=== PATIENT | male | born 1940 | race African-American/Black ===

== ENCOUNTER 2020-11-11 12:17 | Inpatient (IN) | payer OTHER ==
[~2020-11-11] VITALS: Ht 170.2 cm; Wt 91.7 kg
[2020-11-11] MEDS ORDERED: DOPamine 1600MCG/ML D5W 250 ML IV ONE ×3 (12:54→21:30)
[2020-11-11 16:49] LABS: Urine Bacteria NONE SEEN /hpf (None Seen); Urine Blood TRACE /uL (Negative); Urine Hyaline Cast FEW /lpf (0 - 2); Urine WBC 1 /hpf (0 - 3)
[2020-11-11 17:11] LABS: Basophils # (auto) 0.1 10 ^3/uL (0-0.2); Basophils % (auto) 0.3 % (0.0-2.0); Eosinophils # (auto) 0 10 ^3/uL (0-0.8); Hematocrit 33.2 % (41.0-53.0); Hemoglobin 11.1 g/dL (13.5-17.5); Lymphocytes # (auto) 0.6 10 ^3/uL (0.4-5.4); Lymphocytes % (auto) 3.2 % (10.0-50.0); Mean Corpuscular Hemoglobin 32.1 pg (28.0-32.0); Mean Corpuscular Hgb Conc. 33.4 g/dL (32.0-36.0); Mean Corpuscular Volume 95.9 fL (80.0-100.0); Monocytes # (auto) 0.8 10 ^3/uL (0-1.3); Monocytes % (auto) 4.3 % (0.0-12.0); Neutrophils % (auto) 92.2 % (37.0-80.0); Red Blood Cells 3.46 10^6/uL (4.5-5.90); Red Cell Distribution Width 17.9 % (11.8-14.3); White Blood Cell 18.4 10^3/uL (4.4-10.8)
[2020-11-11 17:29] LABS: Chloride 107 mmol/L (98-107); Sodium 142 mmol/L (136-145)
[2020-11-11] MEDS ORDERED: hydrALAZINE HCL 20 MG/ML VL IV ONE (17:30)
[2020-11-11 17:33] LABS: Alanine Aminotransferase 28 U/L (16-61); Albumin 2.8 g/dL (3.4-5.0); Anion Gap 9 (5-15); Aspartate Aminotransferase 36 U/L (15-37); BUN/Creatinine Ratio 6.2; Blood Alcohol < 3.0 mg/dL (0-5); Blood Urea Nitrogen 52 mg/dL (7-18); Calcium 7.2 mg/dL (8.5-10.1); Carbon Dioxide 26 mmol/L (21-32); GFR African American 8 mL/min; GFR Non-African American 7 mL/min
[2020-11-11 17:36] LABS: INR 1.07 (0.9-1.15); Partial Thromboplastin Time 29.2 sec (23.0-31.2)
[2020-11-11 17:38] LABS: Alkaline Phosphatase 135 U/L (45-117); Bilirubin, Total 0.5 mg/dL (0.2-1.0); Total Protein 8.2 g/dL (6.4-8.2)
[2020-11-11 17:48] LABS: Glucose 44 mg/dL (74-106)
[2020-11-11] MEDS ORDERED: hydrALAZINE HCL 20 MG/ML VL IV PRN (19:00)
[2020-11-11] MEDS ORDERED: DOCUSATE CALCIUM 240 MG CAP PO PRN (19:00)
[2020-11-11] MEDS ORDERED: ONDANSETRON HCL 4 MG/2 ML VIAL IV PRN (19:00)
[2020-11-11] MEDS ORDERED: NITROGLYCERIN 0.4 MG SL TAB SL PRN (19:00)
[2020-11-11] MEDS ORDERED: MORPHINE SULFATE INJECTION 2 MG/ML SYRG IV PRN ×2 (19:00)
[2020-11-11] MEDS ORDERED: ACETAMINOPHEN 500 MG TAB PO PRN (19:00)
[2020-11-11] MEDS: SODIUM CHLORIDE 0.9% 1,000 ML IV SCH (19:38)
[2020-11-11] MEDS ORDERED: ACCU-CHEK COMFORT CURVE STRIP VI ONE (22:00)
[2020-11-11] MEDS ORDERED: DEXTROSE (50%) 50ML SYRG IV ONE (22:00)
[2020-11-11] MEDS: InsuLIN REG 1unit/0.01ml Soln (100units/ml) SC SCH (22:00)
[2020-11-12] MEDS ORDERED: hydrALAZINE HCL 20 MG/ML VL ONE (02:24)
[2020-11-12] MEDS: InsuLIN REG 1unit/0.01ml Soln (100units/ml) SC SCH ×4 (06:41→22:00)
[2020-11-12] MEDS ORDERED: DOPamine 1600MCG/ML D5W 250 ML IV ONE (06:44)
[2020-11-12] MEDS ORDERED: cefTRIAXone 1GM/50ML D5W 50 ML IV ONE (07:49)
[2020-11-12 07:50] LABS: Basophils # (auto) 0.1 10 ^3/uL (0-0.2); Basophils % (auto) 0.4 % (0.0-2.0); Eosinophils # (auto) 0 10 ^3/uL (0-0.8); Hematocrit 33.4 % (41.0-53.0); Lymphocytes # (auto) 0.5 10 ^3/uL (0.4-5.4); Lymphocytes % (auto) 3.2 % (10.0-50.0); Mean Corpuscular Hgb Conc. 32.9 g/dL (32.0-36.0); Mean Corpuscular Volume 97.2 fL (80.0-100.0); Monocytes # (auto) 0.7 10 ^3/uL (0-1.3); Monocytes % (auto) 4.5 % (0.0-12.0); Neutrophils # (auto) 13.8 10 ^3/uL (1.6-8.6); Neutrophils % (auto) 91.9 % (37.0-80.0); Nucleated Red Blood Cells % 0.1 %; Red Blood Cells 3.43 10^6/uL (4.5-5.90); Red Cell Distribution Width 18.6 % (11.8-14.3)
[2020-11-12] MEDS: cefTRIAXone 1GM/50ML D5W 50 ML IV SCH (08:00)
[2020-11-12] MEDS: SODIUM CHLORIDE 0.9% 1,000 ML IV SCH ×2 (08:00→17:46)
[2020-11-12 08:10] LABS: Albumin 2.4 g/dL (3.4-5.0); Calcium 6.4 mg/dL (8.5-10.1); Magnesium 1.4 mg/dL (1.6-2.6)
[2020-11-12 08:14] LABS: BUN/Creatinine Ratio 6.5; Bilirubin, Total 0.5 mg/dL (0.2-1.0); Total Protein 7.5 g/dL (6.4-8.2)
[2020-11-12 08:40] LABS: Potassium 6.5 mmol/L (3.5-5.1)
[2020-11-12] MEDS: PANTOPRAZOLE 40 MG TAB PO SCH (09:38)
[2020-11-12] MEDS ORDERED: PANTOPRAZOLE 40 MG/10 ML VIAL INJ IV SCH (10:00)
[2020-11-12] MEDS: ENOXAPARIN SOD 30 MG/0.3 ML SYRINGE SC SCH (10:00)
[2020-11-12] MEDS ORDERED: ENOXAPARIN SOD 30 MG/0.3 ML SYRINGE ONE (10:34)
[2020-11-12] MEDS ORDERED: SODIUM ZIRCONIUM CYCL 10 GM PAK PO ONE (10:45)
[2020-11-12] MEDS ORDERED: LACTULOSE 20Gm/30ML SOLN PO ONE (10:45)
[2020-11-12] MEDS ORDERED: GENTAMICIN SULF 0.3% OPTH(EYE) OINT 3.5GM EACHEYE ONE (10:45)
[2020-11-12] MEDS: MUPIROCIN 2% OINT 15gm or 22gm TOP SCH (12:26)
[2020-11-13 00:45] VITALS: BP 150/68
[2020-11-13 05:00] VITALS: BP 150/68
[2020-11-13 06:04] LABS: Basophils # (auto) 0.1 10 ^3/uL (0-0.2); Eosinophils # (auto) 0 10 ^3/uL (0-0.8); Eosinophils % (auto) 0.2 % (0.0-7.0); Hemoglobin 10.2 g/dL (13.5-17.5); Lymphocytes # (auto) 0.9 10 ^3/uL (0.4-5.4); Lymphocytes % (auto) 7.9 % (10.0-50.0); Mean Corpuscular Hemoglobin 32.3 pg (28.0-32.0); Mean Corpuscular Hgb Conc. 32.9 g/dL (32.0-36.0); Mean Corpuscular Volume 98.3 fL (80.0-100.0); Monocytes # (auto) 0.7 10 ^3/uL (0-1.3); Monocytes % (auto) 6.3 % (0.0-12.0); Neutrophils # (auto) 9.1 10 ^3/uL (1.6-8.6); Neutrophils % (auto) 84.6 % (37.0-80.0); Red Blood Cells 3.15 10^6/uL (4.5-5.90); White Blood Cell 10.8 10^3/uL (4.4-10.8)
[2020-11-13] MEDS: InsuLIN REG 1unit/0.01ml Soln (100units/ml) SC SCH ×4 (06:07→21:06)
[2020-11-13 06:18] LABS: Albumin 2.4 g/dL (3.4-5.0); Calcium 6.2 mg/dL (8.5-10.1); Potassium 5.2 mmol/L (3.5-5.1)
[2020-11-13 06:22] LABS: BUN/Creatinine Ratio 6.9; Bilirubin, Total 0.4 mg/dL (0.2-1.0); Total Protein 7.3 g/dL (6.4-8.2)
[2020-11-13] MEDS ORDERED: VANCOMYCIN 1GM/250ML 250 ML IV ONE (07:00)
[2020-11-13] MEDS: PANTOPRAZOLE 40 MG TAB PO SCH (09:56)
[2020-11-13] MEDS: cefTRIAXone 1GM/50ML D5W 50 ML IV SCH (09:56)
[2020-11-13] MEDS: SODIUM ZIRCONIUM CYCL 10 GM PAK PO SCH (09:56)
[2020-11-13] MEDS: MUPIROCIN 2% OINT 15gm or 22gm TOP SCH (09:57)
[2020-11-13] MEDS: ENOXAPARIN SOD 30 MG/0.3 ML SYRINGE SC SCH (09:57)
[2020-11-13] MEDS: PERITONEAL DIALYSIS 2.5% SOLN 2,000 ML IP SCH ×5 (09:57→22:00)
[2020-11-13] MEDS ORDERED: MUPIROCIN 2% OINT 15gm or 22gm TOP SCH (10:00)
[2020-11-13] MEDS: SODIUM CHLORIDE 0.9% 1,000 ML IV SCH (11:00)
[2020-11-13 17:00] VITALS: BP 159/91
[2020-11-13] MEDS ORDERED: hydrALAZINE HCL 20 MG/ML VL IV PRN (18:00)
[2020-11-13 21:58] VITALS: BP 143/70
[2020-11-14] MEDS: SODIUM CHLORIDE 0.9% 1,000 ML IV SCH (00:37)
[2020-11-14] MEDS: PERITONEAL DIALYSIS 2.5% SOLN 2,000 ML IP SCH ×3 (01:07→09:44)
[2020-11-14 05:03] VITALS: BP 130/54
[2020-11-14] MEDS: InsuLIN REG 1unit/0.01ml Soln (100units/ml) SC SCH ×2 (06:01→11:25)
[2020-11-14 06:03] LABS: Basophils # (auto) 0.1 10 ^3/uL (0-0.2); Basophils % (auto) 0.9 % (0.0-2.0); Eosinophils # (auto) 0.1 10 ^3/uL (0-0.8); Eosinophils % (auto) 1.4 % (0.0-7.0); Hematocrit 27.2 % (41.0-53.0); Hemoglobin 9.2 g/dL (13.5-17.5); Lymphocytes # (auto) 0.9 10 ^3/uL (0.4-5.4); Lymphocytes % (auto) 13.4 % (10.0-50.0); Mean Corpuscular Hemoglobin 32.6 pg (28.0-32.0); Mean Corpuscular Hgb Conc. 33.8 g/dL (32.0-36.0); Mean Corpuscular Volume 96.6 fL (80.0-100.0); Monocytes # (auto) 0.6 10 ^3/uL (0-1.3); Monocytes % (auto) 9.6 % (0.0-12.0); Neutrophils # (auto) 4.9 10 ^3/uL (1.6-8.6); Neutrophils % (auto) 74.7 % (37.0-80.0); Red Blood Cells 2.82 10^6/uL (4.5-5.90); Red Cell Distribution Width 18.5 % (11.8-14.3); White Blood Cell 6.5 10^3/uL (4.4-10.8)
[2020-11-14 06:31] LABS: Potassium 3.3 mmol/L (3.5-5.1)
[2020-11-14 06:34] LABS: Albumin 2.2 g/dL (3.4-5.0); BUN/Creatinine Ratio 6.5; Calcium 6.3 mg/dL (8.5-10.1)
[2020-11-14 06:37] LABS: Bilirubin, Total 0.4 mg/dL (0.2-1.0); Total Protein 6.7 g/dL (6.4-8.2)
[2020-11-14] MEDS: cefTRIAXone 1GM/50ML D5W 50 ML IV SCH (09:00)
[2020-11-14] MEDS: SODIUM ZIRCONIUM CYCL 10 GM PAK PO SCH (09:44)
[2020-11-14] MEDS: PANTOPRAZOLE 40 MG TAB PO SCH (09:44)
[2020-11-14] MEDS: ENOXAPARIN SOD 30 MG/0.3 ML SYRINGE SC SCH (09:45)
[2020-11-14] MEDS: MUPIROCIN 2% OINT 15gm or 22gm TOP SCH (09:45)
== END 2020-11-14 11:50 | disposition home or self-care (01) | DRG 871 ==
LOC: ER 12:17 → OVERFLOW 12:18 → ER 16:38 → TELE-CENTR 11-12 22:43
PROVIDERS: ADMIT Family Medicine; ATTEND Family Medicine
DX: A41.9 Sepsis, unspecified organism (principal); N18.6 End stage renal disease; K65.9 Peritonitis, unspecified; I12.0 Hypertensive chronic kidney disease with stage 5 chronic kidney disease or end stage renal disease; R00.1 Bradycardia, unspecified; E11.22 Type 2 diabetes mellitus with diabetic chronic kidney disease; E87.5 Hyperkalemia; R09.02 Hypoxemia; E11.649 Type 2 diabetes mellitus with hypoglycemia without coma; D64.9 Anemia, unspecified; Z99.2 Dependence on renal dialysis; Z20.822 Contact with and (suspected) exposure to COVID-19
CPT/HCPCS: 36415; 70450; 71045; 80053; 80320; 81001; 82962; 83036; 83605; 83735; 84100; 84484; 85025; 85379; 85610; 85730; 87040; 87081; 87205; 87426; 89051; 93970; 96365; 96375; 99291; G0378; J0696; J1815

== ENCOUNTER 2021-08-23 11:10 | Emergency (ER) | payer OTHER ==
[~2021-08-23] VITALS: Ht 167.6 cm; Wt 81.6 kg
[2021-08-23] MEDS ORDERED: ACCU-CHEK COMFORT CURVE STRIP VI ONE (11:45)
[2021-08-23 12:31] LABS: Basophils # (auto) 0.1 10 ^3/uL (0-0.2); Basophils % (auto) 1.4 % (0.0-2.0); Eosinophils # (auto) 0.1 10 ^3/uL (0-0.8); Eosinophils % (auto) 2.1 % (0.0-7.0); Hematocrit 33.3 % (41.0-53.0); Hemoglobin 11.1 g/dL (13.5-17.5); Lymphocytes # (auto) 0.5 10 ^3/uL (0.4-5.4); Lymphocytes % (auto) 10.1 % (10.0-50.0); Mean Corpuscular Hgb Conc. 33.4 g/dL (32.0-36.0); Mean Corpuscular Volume 98.7 fL (80.0-100.0); Monocytes # (auto) 0.4 10 ^3/uL (0-1.3); Monocytes % (auto) 7.7 % (0.0-12.0); Neutrophils # (auto) 3.9 10 ^3/uL (1.6-8.6); Neutrophils % (auto) 78.7 % (37.0-80.0); Nucleated Red Blood Cells % 0.3 %; Red Blood Cells 3.38 10^6/uL (4.5-5.90); White Blood Cell 4.9 10^3/uL (4.4-10.8)
[2021-08-23 12:44] LABS: Albumin 1.4 g/dL (3.4-5.0); Anion Gap 12 (5-15); Blood Urea Nitrogen 25 mg/dL (7-18); Calcium 8.2 mg/dL (8.5-10.1); Carbon Dioxide 26 mmol/L (21-32); Chloride 95 mmol/L (98-107); Glucose 290 mg/dL (74-106); Sodium 133 mmol/L (136-145)
[2021-08-23 12:46] LABS: Lactic Acid w/Reflex 5.4 mmol/L (0.4-2.0)
[2021-08-23 12:50] LABS: Alanine Aminotransferase 24 U/L (16-61); Alkaline Phosphatase 170 U/L (45-117); Aspartate Aminotransferase 27 U/L (15-37); Bilirubin, Total 0.3 mg/dL (0.2-1.0); GFR African American 8 mL/min; GFR Non-African American 7 mL/min; Total Protein 7.4 g/dL (6.4-8.2)
[2021-08-23 13:07] LABS: Potassium 2.8 mmol/L (3.5-5.1)
[2021-08-23] MEDS ORDERED: POTASSIUM CHL 20 Meq TABLET PO ONE (14:30)
[2021-08-23 18:27] VITALS: BP 145/64
== END 2021-08-23 18:56 | disposition home or self-care (01) ==
LOC: EDBD 11:10 → ER 11:10
DX: R00.1 Bradycardia, unspecified (principal); I48.91 Unspecified atrial fibrillation; R55 Syncope and collapse; E87.6 Hypokalemia; I12.0 Hypertensive chronic kidney disease with stage 5 chronic kidney disease or end stage renal disease; E11.22 Type 2 diabetes mellitus with diabetic chronic kidney disease; N18.6 End stage renal disease; Z88.8 Allergy status to other drugs, medicaments and biological substances; Z20.822 Contact with and (suspected) exposure to COVID-19
CPT/HCPCS: 36415; 70450; 71045; 80053; 82962; 83605; 83880; 84484; 85025; 87040; 87426; 93005; 99291